=== PATIENT | female | born 1990 | race African-American/Black ===

== ENCOUNTER 2024-08-19 15:16 | Inpatient (IN) | payer OTHER, SELFPAY ==
[~2024-08-19 15:16] MED LIST: Bupivacaine 0.25% HCL 30 ML VIAL ONE; ePHEDrine Sulfate 50 MG/10 ML VIAL ONE
[2024-08-19] MEDS ORDERED: Ondansetron PF 4 MG/2 ML Vial IVP PRN ×5 (16:28→23:16)
[2024-08-19] MEDS ORDERED: Lidocaine 1% (PF) 30 ML VIAL SC PRN (16:28)
[2024-08-19] MEDS ORDERED: Promethazine HCl 25 MG/ML VIAL IM PRN ×3 (16:28→23:16)
[2024-08-19] MEDS ORDERED: Tranexamic Acid 1,000 MG/10 ML VIAL IVP PRN (16:28)
[2024-08-19] MEDS ORDERED: Misoprostol 200 MCG TAB PR PRN (16:28)
[2024-08-19] MEDS ORDERED: Methylergonovine 0.2 MG/ML VIAL IM PRN (16:28)
[2024-08-19] MEDS ORDERED: Ibuprofen 800 MG TAB PO PRN (16:28)
[2024-08-19] MEDS ORDERED: Diphenoxylate HCl/Atropine Tablet PO PRN (16:28)
[2024-08-19] MEDS ORDERED: hydrALAZINE 20 MG/ML VIAL SLOW IVP PRN ×2 (16:28→22:48)
[2024-08-19] MEDS ORDERED: Acetaminophen 500 MG TAB PO PRN (16:28)
[2024-08-19] MEDS ORDERED: Oxytocin 30 units/NS 500 ML 500 ML IV SCH ×3 (16:30)
[2024-08-19] MEDS ORDERED: Misoprostol 100 MCG TAB VAG SCH (16:30)
[2024-08-19 17:02] LABS: Hematocrit 27.6 % (34.9-44.5); Hemoglobin 8.6 g/dL (12.0-15.5); Mean Corpuscular HGB CONC 31.2 g/dL (32.0-36.0); Mean Corpuscular Volume 73.8 fL (81.6-98.3); Mean Platelet Volume 12.2 fL (7.4-10.4); Platelet Count 233 10x3/uL (150-450); RBC Distribution Width 17.4 % (11.5-14.5); Red Blood Cell (RBC) Count 3.74 10x6/uL (3.90-5.03); White Blood Cell (WBC) Count 9.41 10x3/uL (3.5-10.5)
[2024-08-19] MEDS: fentaNYL/Ropivacaine Epidural 100 ML ONE (17:15)
[2024-08-19] MEDS ORDERED: Acetaminophen 325 MG TAB PO PRN ×2 (17:35→22:48)
[2024-08-19] MEDS ORDERED: ePHEDrine Sulfate 50 MG/10 ML VIAL SLOW IVP PRN (17:35)
[2024-08-19] MEDS ORDERED: Lactated Ringer's 500 ML IV PRN (17:35)
[2024-08-19] MEDS ORDERED: Moisturizing Cream (Eucerin) 113 GM JAR TOP PRN ×2 (17:35→23:16)
[2024-08-19] MEDS ORDERED: Naloxone HCl 0.4 mg/ml Vial IVP PRN ×4 (17:35→23:16)
[2024-08-19] MEDS ORDERED: diphenhydrAMINE 50 MG/ML VIAL IVP PRN ×2 (17:35→23:16)
[2024-08-19 17:36] LABS: Syphilis Antibody Nonreactive (Nonreactive); Syphilis Antibody Index 0.07 S/CO (<1.00 Non-Reactive)
[2024-08-19 17:37] LABS: HIV (1/2) Antibody/Antigen Non-Reactive (NonReactive); HIV 1/2 INDEX 0.17 S/CO (<1.00); Hep B Surf Ag - L&D Non-Reactive S/CO (NonReactive)
[2024-08-19 17:41] VITALS: BMI 28.6
[2024-08-19] MEDS ORDERED: Communication Order-Pharmacy FS SCH ×2 (17:45→23:30)
[2024-08-19] MEDS ORDERED: fentaNYL 2 mcg/Ropivacaine 0.2% Epidural 100 ML CADD EPIDURAL SCH ×2 (17:45→23:30)
[2024-08-19] MEDS ORDERED: Famotidine/PF 20 mg/2ml Vial SLOW IVP PRN (21:04)
[2024-08-19] MEDS ORDERED: Bicitra 30 ML UDCUP PO PRN (21:04)
[2024-08-19] MEDS ORDERED: Azithromycin 500 MG in Sodium Chloride 0.9% 250 ML 250 ML IVPB SCH (21:15)
[2024-08-19] MEDS ORDERED: CEFAZOLIN 2 GM in Sodium Chloride 0.9% 100 ML IVPB SCH (21:15)
[2024-08-19] MEDS ORDERED: Bisacodyl 10 MG SUPP PR PRN (22:48)
[2024-08-19] MEDS ORDERED: Lanolin Ointment 7 GM TUBE TOP PRN (22:48)
[2024-08-19] MEDS ORDERED: diphenhydrAMINE 25 MG CAP PO PRN (22:48)
[2024-08-19 23:05] LABS: Analyzer IN Cardio CS NICU; Critical Notified By: R. Seaholm RRT; RapidComm Collect By RN; pH (Cord, venous) 7.413 (7.250-7.350)
[2024-08-19] MEDS ORDERED: Morphine 4 MG/ML VIAL SLOW IVP PRN (23:16)
[2024-08-19] MEDS ORDERED: Naloxone HCl 0.4 mg/ml Vial IV PRN (23:16)
[2024-08-19] MEDS ORDERED: Meperidine HCl/PF 25 MG (1 mL) VIAL SLOW IVP PRN (23:16)
[2024-08-19] MEDS ORDERED: Ketorolac Tromethamine 30 MG (1 mL) VIAL IVP SCH (23:30)
[2024-08-20] MEDS: Fentanyl 100 MCG/2 ML VIAL SLOW IVP PRN (00:27)
[2024-08-20] MEDS: Lactated Ringer's 1,000 ML IV SCH (04:53)
[2024-08-20 05:32] LABS: Hematocrit 26.2 % (34.9-44.5); Hemoglobin 8.2 g/dL (12.0-15.5); Mean Corpuscular HGB CONC 31.3 g/dL (32.0-36.0); Mean Corpuscular Hemoglobin 23.4 pg (27.0-33.0); Mean Corpuscular Volume 74.9 fL (81.6-98.3); RBC Distribution Width 17.3 % (11.5-14.5)
[2024-08-20 05:36] LABS: Mean Platelet Volume 11.9 fL (7.4-10.4); Platelet Count 193 10x3/uL (150-450)
[2024-08-20] MEDS: Ketorolac Tromethamine 30 MG (1 mL) VIAL IVP PRN (05:46)
[2024-08-20] MEDS: Prenatal Vitamin 1 TAB PO SCH (08:27)
[2024-08-20] MEDS: Ferrous Sulfate 325 MG TAB PO SCH (08:28)
[2024-08-20] MEDS: Docusate 100 MG CAP PO PRN (08:28)
[2024-08-20] MEDS: ePHEDrine Sulfate 50 MG/10 ML VIAL ONE (08:39)
[2024-08-20] MEDS: Phytonadione Neonatal 1 MG/0.5 ML AMP ONE (08:39)
[2024-08-20] MEDS: Erythromycin Base 0.5% Oint 1 GM TUBE ONE (08:39)
[2024-08-20] MEDS: Lidocaine 2% MPF 10 ML AMP (For Epidural Use) ONE (08:39)
[2024-08-20] MEDS: Ondansetron PF 4 MG/2 ML Vial ONE (08:39)
[2024-08-20] MEDS: Hepatitis B Vaccine 10 MCG/0.5 ML SYR ONE (08:39)
[2024-08-20] MEDS: Oxytocin 10 UNITS/ML VIAL ONE (08:40)
[2024-08-20] MEDS: Phenylephrine 40 MG/NS 250 ML 250 ML ONE (08:40)
[2024-08-20] MEDS: Morphine PF 10 MG/10 ML VIAL ONE (08:40)
[2024-08-20] MEDS: Ketorolac Tromethamine 30 MG (1 mL) VIAL ONE (08:40)
[2024-08-20] MEDS: Boostrix 0.5 ML (Tdap) VIAL (>/=7 yrs of age) IM ONE (08:40)
[2024-08-20] MEDS: Simethicone Chewable 80 MG TAB PO PRN (11:48)
[2024-08-20] MEDS: HYDROcodone/Acetaminophen 5/325 mg Tablet PO PRN (11:49)
[2024-08-20] MEDS ORDERED: HYDROcodone/Acetaminophen 5/325 mg Tablet PO PRN (12:30)
[2024-08-21] MEDS ORDERED: Ibuprofen 800 MG TAB PO PRN (05:00)
[2024-08-21] MEDS: Ibuprofen 800 MG TAB PO SCH (05:20)
[2024-08-21 13:22] LABS: Group B Streptococcus by PCR Not Detected (NotDetected)
[2024-08-22 01:44] LABS: Hep B Surf AB Indeterminate (NonReactive)
[2024-08-22 07:59] VITALS: BP 90/50; TEMP 98
== END 2024-08-22 16:45 | disposition home or self-care (01) | DRG 788 ==
LOC: CSHLD/OP 15:16 → CSHLD 16:44 → CSHPP 08-20 01:40
PROVIDERS: ADMIT Obstetrics & Gynecology; ATTEND Obstetrics & Gynecology
PROC: 10D00Z1 Extraction of Products of Conception, Low, Open Approach (ICD-10-PCS; principal; 2024-08-19)
PROC: 30233N1 Transfusion of Nonautologous Red Blood Cells into Peripheral Vein, Percutaneous Approach (ICD-10-PCS; 2024-08-19)
DX: O99.02 Anemia complicating childbirth (principal); D50.9 Iron deficiency anemia, unspecified; O34.211 Maternal care for low transverse scar from previous cesarean delivery; O66.40 Failed trial of labor, unspecified; O76 Abnormality in fetal heart rate and rhythm complicating labor and delivery; O69.89X0 Labor and delivery complicated by other cord complications, not applicable or unspecified; O69.81X0 Labor and delivery complicated by cord around neck, without compression, not applicable or unspecified; Z3A.40 40 weeks gestation of pregnancy; Z37.0 Single live birth; Z87.59 Personal history of other complications of pregnancy, childbirth and the puerperium; Z87.891 Personal history of nicotine dependence
CPT/HCPCS: 36415; 36430; 51702; 82805; 85027; 86706; 86780; 86850; 86900; 86901; 87340; 87389; 87653; 99285; J0665; J1885; J2274; J2405; J2590; J3010; P9016